=== PATIENT | female | born 1935 | race Caucasian/White ===

== ENCOUNTER → 2022-03-04 13:52 | Outpatient (BNVA) | payer MEDICARE, OTHER, SELFPAY | PROVIDERS: Visit Provider Nurse Practitioner Family | DX: M17.11 Unilateral primary osteoarthritis, right knee (principal) | CPT/HCPCS: 20610; 73560; 73565; 99204; J1100; J2795; J3301 ==

== ENCOUNTER → 2023-02-07 12:57 | Outpatient (BNVA) | payer MEDICARE, SELFPAY | PROVIDERS: Visit Provider Specialist | DX: Z96.652 Presence of left artificial knee joint; G89.29 Other chronic pain; M17.11 Unilateral primary osteoarthritis, right knee | CPT/HCPCS: 99204 ==

== ENCOUNTER → 2023-02-07 13:01 | Outpatient (BNVA) | payer MEDICARE, SELFPAY | PROVIDERS: Visit Provider Specialist | DX: Z96.652 Presence of left artificial knee joint; M17.11 Unilateral primary osteoarthritis, right knee; G89.29 Other chronic pain | CPT/HCPCS: 73560; 73565; 99204 ==

== ENCOUNTER 2023-03-11 07:27 | Outpatient (CLI) | payer MEDICARE, SELFPAY ==
--- NOTE | 2023-03-11 08:00 | NM_ITS ---
WS: [id number] THREE-PHASE BONE SCAN HISTORY: HX L KNEE REPLACEMENT COMPARISON: Knee radiographs 02/07/2023 Patient is is injected with 24.3 mCi Tc99m HDP intravenously. Immediate angiographic phase imaging is performed over the area of concern. Static blood pool imaging also performed. Two-hour whole-body sc intigrams performed in anterior and posterior projections. Additional large field of view imaging sub mitted as necessary. Normal angiographic phase imaging centered over the knees. There is a photopenic defect at the LEFT k nee from a prior arthroplasty. There is mild increased uptake also centered around the anterior media l RIGHT knee at the site of severe joint space narrowing. On the delayed imaging there is increased uptake at the RIGHT knee along the tibial plateau interface from the femoral condyles. Increased uptake involves both the anterior and posterior knee. No signif icant increased uptake at the LEFT knee prosthesis. Mild RIGHT AC joint osteoarthritis. Very mild degenerative changes at the RIGHT ankle. No rib or spin e lesions. Soft tissues are normal. Normal uptake within the kidneys. IMPRESSION: 1. No significant uptake involving the LEFT knee prosthesis. 2. There is significant uptake at the RIGHT knee involving the tibial plateau and the femoral condyle s. Probably reactive process related to the advanced osteoarthritis. No evidence for osteomyelitis or cellulitis.
== END 2023-03-11 07:28 | disposition home or self-care (01) ==
PROVIDERS: PCP Family Medicine; Visit Provider Specialist
DX: M17.11 Unilateral primary osteoarthritis, right knee (principal); Z96.653 Presence of artificial knee joint, bilateral
CPT/HCPCS: 78315; A9561

== ENCOUNTER → 2023-03-28 09:08 | Outpatient (BNVA) | payer MEDICARE, SELFPAY | PROVIDERS: PCP Family Medicine; Visit Provider Specialist | DX: T84.84XA Pain due to internal orthopedic prosthetic devices, implants and grafts, initial encounter; Z96.652 Presence of left artificial knee joint; Y79.2 Prosthetic and other implants, materials and accessory orthopedic devices associated with adverse incidents | CPT/HCPCS: 99214 ==